=== PATIENT | female | born 1950 | race Caucasian/White ===

== ENCOUNTER → 2016-07-05 | Outpatient (CLI) | payer BC ==
[~2016-07-05] MED LIST: ALBUAER2 INH; CHOL20009 PO; COEN100C7 PO; ENOX80IN SQ; FEXO1TAB49 PO; FLUO0.0566 TOP; FLUT110A INH; LATA0.5S OPB; LEVO88TA PO; MIRA100T PO; OXYB5TAB74 PO; PANT40TA PO; PRVC10 PO; WARF4TAB PO
--- NOTE | 2016-07-05 15:48 | DIAGNOSTIC IMAGING REPORT ---
RIGHT FOOT MIN 3 VIEWS ROUTINE CLINICAL HISTORY: M77.40 Metatarsalgia RIGHT COMPARISON: None. DISCUSSION: No acute fractures are visualized. There are no erosive or destructive changes. There is no suspicious periostitis. IMPRESSION: No fractures, dislocations, or destructive lesions are visualized. Electronically signed by: Stephen Cannon M.D. 07/05/2016 3:46 PM Dictated Date/Time: 07/05/2016 3:45 PM
--- NOTE | 2016-07-05 15:57 | DIAGNOSTIC IMAGING REPORT ---
LEFT FOOT 3 VIEWS CLINICAL HISTORY: Foot pain. FINDINGS: 3 views of the left foot are compared to study dated 09/30/2014. The skeletal structures are osteopenic. No fracture is identified. Mild arthritic changes seen at the first metatarsophalangeal joint. The joint spaces of the foot are otherwise well-maintained. No erosive change is identified. There is minimal degenerative spurring along the dorsal aspect of the tarsal bones. A large plantar calcaneal enthesophyte is observed. Mild dorsal soft tissue swelling is noted. IMPRESSION: 1. Mild dorsal soft tissue swelling with no acute bony abnormality identified in the left foot. 2. Osteopenia, a plantar heel spur, and mild arthritic change as above. There has been no significant change from 09/30/2014. Electronically signed by: Anthony Perez M.D. 07/05/2016 3:55 PM Dictated Date/Time: 07/05/2016 3:54 PM
== END | disposition home or self-care (01) ==
LOC: C.RADBC 14:48
PROVIDERS: ATTEND Internal Medicine Geriatric Medicine
DX: M77.40 Metatarsalgia, unspecified foot (principal); M77.32 Calcaneal spur, left foot; M85.872 Other specified disorders of bone density and structure, left ankle and foot

== ENCOUNTER → 2016-09-03 | Outpatient (CLI) | payer BC ==
[~2016-09-03] MED LIST changes: +ACET-1256 PO; +CYAN100020 PO; +DTR/5 PO; +FIBER; -OXYB5TAB74 PO; +PROB1TAB16; +WARF5TAB7 PO
== END | disposition home or self-care (01) ==
LOC: C.LABSPEC 13:44
PROVIDERS: ATTEND Physician Assistant Medical
DX: S81.802A Unspecified open wound, left lower leg, initial encounter (principal); X58.XXXA Exposure to other specified factors, initial encounter; I10 Essential (primary) hypertension; E03.9 Hypothyroidism, unspecified; R73.9 Hyperglycemia, unspecified; Z51.81 Encounter for therapeutic drug level monitoring; Z79.01 Long term (current) use of anticoagulants

== ENCOUNTER → 2016-11-13 | Outpatient (CLI) | payer BC ==
[~2016-11-13] MED LIST changes: -ACET-1256 PO; -CYAN100020 PO; -DTR/5 PO; -FIBER; +OXYB5TAB74 PO; -PROB1TAB16; -WARF5TAB7 PO
[2016-11-13 14:39] LABS: BASO % 1.2 %; BASO ABS # 0.09 K/uL (0-0.2); COMPLETE YES; EOS % 2.7 %; HEMATOCRIT 46.8 % (37-47); IG% 0.4 %; LYMPH % 33.9 %; LYMPH ABS # 2.62 K/uL (1.2-3.4); MEAN CELL VOLUME 91.4 fL (80-100); MEAN CORPUSCULAR HEMOGLOBIN 29.5 pg (25-34); MEAN CORPUSCULAR HGB CONC 32.3 g/dl (32-36); MEAN PLATELET VOLUME 10.4 fL (7.4-10.4); MONO % 9.5 %; NEUT % 52.3 %; PLATELET COUNT 273 K/uL (130-400); RED BLOOD COUNT 5.12 M/uL (4.2-5.4); WHITE BLOOD COUNT 7.72 K/uL (4.8-10.8)
[2016-11-13 14:45] LABS: BLOOD UREA NITROGEN 12 mg/dl (7-18); BUN/CREATININE RATIO 15.9 (10-20); CALCIUM 9.2 mg/dl (8.5-10.1); CARBON DIOXIDE 28 mmol/L (21-32); CHLORIDE 105 mmol/L (98-107); CREATININE 0.76 mg/dl (0.60-1.20); GLUCOSE 97 mg/dl (70-99); POTASSIUM 3.8 mmol/L (3.5-5.1); SODIUM 141 mmol/L (136-145)
[2016-11-13 14:55] LABS: THYROID STIMULATING HORMONE 0.503 uIu/ml (0.300-4.500)
[2016-11-14 06:57] LABS: ESTIMATED AVERAGE GLUCOSE 126 mg/dl; HA1C FLAG Normal (Normal)
== END | disposition home or self-care (01) ==
LOC: C.LABBC 11:15
PROVIDERS: ATTEND Internal Medicine Geriatric Medicine
DX: E03.9 Hypothyroidism, unspecified (principal); I10 Essential (primary) hypertension; M85.80 Other specified disorders of bone density and structure, unspecified site; R73.9 Hyperglycemia, unspecified; Z51.81 Encounter for therapeutic drug level monitoring; Z79.01 Long term (current) use of anticoagulants

== ENCOUNTER → 2017-03-25 | Outpatient (CLI) | payer BC ==
[~2017-03-25] MED LIST changes: +ACET-1256 PO; -COEN100C7 PO; +CYAN100020 PO; -ENOX80IN SQ; +FIBER; -OXYB5TAB74 PO; -PANT40TA PO; +PROB1TAB16; -PRVC10 PO; +WARF5TAB7 PO
--- NOTE | 2017-03-25 14:32 | MAMMOGRAPHY REPORT ---
BILATERAL DIGITAL SCREENING MAMMOGRAM TOMOSYNTHESIS WITH CAD: 03/25/2017 CLINICAL HISTORY: Routine screening. Patient has no complaints. TECHNIQUE: Breast tomosynthesis in addition to standard 2D mammography was performed. Current study was also evaluated with a Computer Aided Detection (CAD) system. COMPARISON: Comparison is made to exams dated: 03/19/2016 mammogram, 03/14/2015 mammogram, 03/10/2014 mammogram, 03/09/2013 mammogram, 03/04/2012 mammogram, and 12/28/2010 mammogram - [facility]. BREAST COMPOSITION: The tissue of both breasts is almost entirely fatty. FINDINGS: There is a newly visualized ill-defined 9 mm focal asymmetry versus mass in the approximat e 9:00 to 10:00 right breast, for which additional targeted ultrasound and possible additional mammog raphic views are recommended. There are scattered bilateral stable groupings of benign-appearing microcalcifications in both breast s. No other suspicious mass, architectural distortion or cluster of suspicious microcalcifications i s seen. IMPRESSION: ACR BI-RADS CATEGORY 0: INCOMPLETE EVALUATION: NEED ADDITIONAL IMAGING EVALUATION The newly visualized ill-defined 9 mm focal asymmetry versus mass in the right breast needs additiona l evaluation. The patient will be called to schedule an appointment. Approximately 10% of breast cancers are not detected with mammography. A negative mammographic report should not delay biopsy if a clinically suggestive mass is present. Margaret Reddy M.D. ay/:03/25/2017 10:54:26 Commercial Cleaner: Prince Barfield M, [facility] letter sent: Addl Imaging 0 BI-RADS Code: ACR BI-RADS Category 0: Incomplete Evaluation: Need Additional Imaging Evaluation
== END | disposition home or self-care (01) ==
LOC: C.MAMM 09:41
PROVIDERS: ATTEND Obstetrics & Gynecology
DX: Z12.31 Encounter for screening mammogram for malignant neoplasm of breast (principal); R92.8 Other abnormal and inconclusive findings on diagnostic imaging of breast

== ENCOUNTER → 2017-04-01 | Outpatient (CLI) | payer BC ==
--- NOTE | 2017-04-02 13:44 | MAMMOGRAPHY REPORT ---
ULTRASOUND OF RIGHT BREAST: 04/01/2017 CLINICAL HISTORY: 67-year-old woman called back from screening mammography for a newly visualized 9 m m focal asymmetry in the approximate 9:00 right breast. COMPARISON: Comparison is made to exams dated: 03/25/2017 mammogram, 03/19/2016 mammogram, 5 mammogram, 03/10/2014 mammogram, 03/09/2013 mammogram, and 03/04/2012 mammogram - [facility]. FINDINGS: Targeted ultrasound was performed in the lateral right breast to assess for the newly visu alized focal asymmetry seen mammographically. In the 9:00 axis, 4 cm from the nipple, there is a lob ulated hypoechoic solid mass with somewhat indistinct borders, measuring 6.8 x 5.2 x 8.0 mm. This co rrelates with the mammographic mass and is indeterminate given the solid nature. Definitive characte rization with an ultrasound-guided core biopsy is recommended. Additional sonographic evaluation was performed in the right axilla, which demonstrates a few morphol ogically normal lymph nodes with vertical thickness within the range of normal. No suspicious right axillary lymphadenopathy is identified on targeted ultrasound. IMPRESSION: ACR BI-RADS CATEGORY 4: SUSPICIOUS - FOLLOW-UP RECOMMENDED 1. Ultrasound-guided core biopsy is recommended for an indeterminate 8 mm hypoechoic solid mass in t he 9:00 right breast, thought to correlate with the newly visualized mammographic focal asymmetry. 2. No suspicious left axillary lymphadenopathy identified on targeted ultrasound. These results and recommendations were discussed with the patient at the time of the exam. She tenta tively scheduled the biopsy prior to leaving our department. Margaret Reddy M.D. ay/:04/01/2017 15:04:06 Material Controller: Sindi AVILES(R)(M), [facility] letter sent: Abnormal 4/5 BI-RADS Code: ACR BI-RADS Category 4: Suspicious
== END | disposition home or self-care (01) ==
LOC: C.MAMM 14:06
PROVIDERS: ATTEND Obstetrics & Gynecology
DX: N63.0 Unspecified lump in unspecified breast (principal)

== ENCOUNTER → 2017-04-15 | Outpatient (CLI) | payer BC ==
--- NOTE | 2017-04-15 10:55 | Discharge Instructions ---
Discharge Instructions Procedure Procedure Date: Apr 15, 2017. Reason for visit: Right Mass. Discharge Discharge Date: Apr 15, 2017. Discharge Diagnosis: post right breast ultrasound guided core biopsy Medications Restart Stopped Medication(s): Remain on normal Coumadin schedule per coumadin clinic Instructions Activity Recommendations: Additional Limitations (see below) Return to School/Work: no limitations Recommended Home Diet: No Limitations Provider Instructions: ACTIVITY RECOMMENDATIONS: * No lifting, pushing, pulling or exercising the affected side for three days. RETURN TO SCHOOL/WORK: * You may return to work/school after the procedure, but do not perform any strenuous activities for 24 to 48 hours. MEDICATIONS: * Tylenol (two 325 mg) every four to six hours if needed for mild pain (if not allergic to Tylenol). DIET: * Resume previous diet. SPECIAL CARE INSTRUCTIONS: * Keep biopsy site dry for 24 hours. May shower after 24 hours, but do not soak (bathe) incision. * May remove Tegaderm (plastic patch) tomorrow AFTER showering. * Leave the steri-strips on for one week. Allow the steri-strips to fall off by themselves. If not off after one week, you may remove them. You may place a Bandaid crosswise over the strips, if desired. * Apply ice 10 minutes on and 10 minutes off as needed. * Wear a bra at bedtime to sleep more comfortably for 2-3 days. * Your referring physician should have the results after approximately 5 to 7 business days. * Call for unusual bleeding, fever, drainage, etc or if you have any questions call [phone] during normal business hours or after hours call Dr Reddy, . FOLLOW UP VISIT: Follow-up with Referring Physician as scheduled. Allergies Coded Allergies: Solifenacin (Verified Allergy, Intermediate, rash, joint pain, 04/03/16) Adhesives (Verified Allergy, Unknown, REDNESS, 04/03/16) BEE STING (Verified Allergy, Unknown, SWELLING, 04/03/16) Dust (Verified Allergy, Unknown, 04/03/16) POLLEN (Verified Allergy, Unknown, 04/03/16) Kyara Moreno Recommendations: Call your doctor if: * Temperature above 101 degrees * Pain not relieved by pain medicine ordered * There is increased drainage or redness from any incision * You have any unanswered questions or concerns. Your Doctors Instructions noted above were prepared by provider Margaret Reddy. Patient Signature Section: Patient Instructions Signature Page Violet Nelson Patient (or Guardian) Signature/Date: I have read and understand the instructions given to me by my caregivers. Caregiver/RN/Doctor Signature/Date: The above-named patient and/or guardian has received patient instructions on this date. + Original Patient Signature Page (only) stays with chart. Please make copy for patient.
--- NOTE | 2017-04-15 15:10 | MAMMOGRAPHY REPORT ---
ULTRASOUND GUIDED BIOPSY RIGHT BREAST: 04/15/2017 CLINICAL HISTORY: Status post ultrasound-guided core biopsy of a lobulated 8 mm mass in the 9:00 righ t breast. COMPARISON: Comparison is made to exams dated: 04/01/2017 ultrasound, 03/25/2017 mammogram, 03/19/20 16 mammogram, 03/14/2015 mammogram, 03/10/2014 mammogram, and 03/09/2013 mammogram - [facility]. PATIENT CONSENT: The procedure, risks and benefits were discussed with the patient and informed conse nt was obtained both verbally and in writing. Specific risks to this procedure include: bleeding, in fection, puncture of adjacent structure, nontarget biopsy, sampling error, pain, metal allergy and me dication reaction. PROCEDURE DESCRIPTION: A time out was performed and the right breast was agreed as the site of biopsy . The skin was prepped and draped in the usual sterile fashion. The solid lobulated 8 mm mass in the 9:00 right breast was chosen as the target for biopsy. Subcutaneous and intraparenchymal 1% buffered lidocaine, with and without epinephrine, was administered as local anesthesia. A skin incision was ma de. Through the incision, 5 samples were taken with a 14 gauge Achieve biopsy device. A ribbon shape d metallic marker was placed at the biopsy site. Hemostasis was achieved after manual compression. Th e patient tolerated the procedure well and there was no immediate complication. The samples were sen t to the pathology department in an appropriately labeled container. Postprocedure right CC and ML tomosynthesis images were obtained. A new ribbon-shaped biopsy marker clip is seen within the newly visualized mammographic mass in question in the 9:00 middle to posterio r right breast. No significant postbiopsy hematoma identified. IMPRESSION: ULTRASOUND GUIDED BIOPSY Status post ultrasound guided core biopsy of a new suspicious lobulated 8 mm mass in the 9:00 right b reast, with biopsy marker clip placed at the site. The patient will receive notification of the biopsy results from her referring physician Remain on Coumadin as per committing clinic schedule. Margaret Reddy M.D. ay/:04/15/2017 11:04:25 Buttonhole Facer: Kristi AVILES(Prince)(Luis Antonio), [facility]
--- NOTE | 2017-04-15 15:12 | MAMMOGRAPHY REPORT ---
UNILATERAL RIGHT DIGITAL DIAGNOSTIC MAMMOGRAM TOMOSYNTHESIS: 04/15/2017 CLINICAL HISTORY: Status post ultrasound guided core biopsy of a suspicious 8 mm mass in the 9:00 rig ht breast. Please refer to the report from right breast ultrasound guided core biopsy performed at the same time for full detail. IMPRESSION: POST PROCEDURE IMAGING FOR MARKER PLACEMENT Please refer to the report from right breast ultrasound guided core biopsy performed at the same time for full detail. Approximately 10% of breast cancers are not detected with mammography. A negative mammographic report should not delay biopsy if a clinically suggestive mass is present. Margaret Reddy M.D. ay/:04/15/2017 10:54:04 Budget Controller: Kristi JACINTO)(M), [facility] BI-RADS Code: Post Procedure Imaging For Marker Placement
== END | disposition home or self-care (01) ==
LOC: C.MAMM 09:50
PROVIDERS: ATTEND Obstetrics & Gynecology
DX: N63.10 Unspecified lump in the right breast, unspecified quadrant (principal); C50.911 Malignant neoplasm of unspecified site of right female breast

== ENCOUNTER → 2017-05-12 | Outpatient (CLI) | payer BC ==
--- NOTE | 2017-05-12 09:43 | DIAGNOSTIC IMAGING REPORT ---
PET/CT HISTORY: BREAST CANCER TECHNIQUE: PET/CT was performed from the base of the skull through the pelvis following the intravenous administration of mCi of F18-FDG. Non-contrast CT imaging was performed over the same range without breath-hold for attenuation correction of PET images and anatomic correlation, but not for primary interpretation as it is not of standard diagnostic quality. CT DOSE: 662.84 mGycm COMPARISON: Abdomen and pelvis CT 03/29/2016. FINDINGS: HEAD AND NECK: Symmetric FDG uptake within the brain. Bilateral jugulodigastric lymph nodes demonstrating mild FDG uptake with an SUV max of the left 12 x 9 mm lymph node measuring 3.7 and SUV max of 3.3 within 9 mm right lymph node. No supraclavicular lymphadenopathy. CHEST: No mediastinal, axillary, or hilar FDG avid or enlarged lymph nodes. 1 cm mass within the right breast demonstrating a biopsy clip. This demonstrates mild FDG uptake with an SUV max of 1.6. This corresponds the patient's known malignancy. No pleural effusions. No FDG avid or suspicious pulmonary nodules. ABDOMEN/PELVIS: Large ventral hernia is again noted. Slight increase in size in a few mildly enlarged left external iliac and left inguinal lymph nodes. Dominant left external iliac lymph node best in image 182 measures 15 x 10 mm. This previous measured 10 x 6 mm. This demonstrates an SUV max of 2.4. MUSCULOSKELETAL: There is no FDG-avid or destructive bone lesion. IMPRESSION: 1. A 1 cm mass within the right breast with an associated biopsy clip consistent with the patient's known malignancy. This demonstrates minimal FDG uptake with an SUV max of 1.6. 2. A few upper cervical, left external iliac, and left inguinal lymph nodes which are borderline enlarged and demonstrate mild FDG uptake as described above. Given the location and mild FDG uptake this is unlikely to represent metastatic disease. However, six-month chest CT follow-up is recommended to ensure stability/resolution of these findings. Electronically signed by: Jose Means M.D. 05/12/2017 9:42 AM Dictated Date/Time: 05/12/2017 9:14 AM
== END | disposition home or self-care (01) ==
LOC: C.PET 06:55
PROVIDERS: ATTEND Internal Medicine Hematology & Oncology
DX: C50.411 Malignant neoplasm of upper-outer quadrant of right female breast (principal)

== ENCOUNTER → 2017-05-25 | Outpatient (CLI) | payer BC ==
[~2017-05-25] MED LIST changes: -ALBUAER2 INH; +ASTN; -CYAN100020 PO; +CYAN1TAB PO; +ENOX40IN SQ; +ENOX80IN SQ; -FIBER; -FLUT110A INH; +FLVHFA110 INH; +FURO-85 PO; +HYDR-5688 PO; +MAGN250T22 PO; +METH500T3 PO; +MISCCAP80 PO; +POTA99TA PO; -PROB1TAB16; +VNTHFA/IN INH
== END | disposition home or self-care (01) ==
LOC: C.LAB 09:20
PROVIDERS: ATTEND Pathology Blood Banking & Transfusion Medicine
DX: Z79.01 Long term (current) use of anticoagulants (principal)

== ENCOUNTER 2017-05-26 07:52 | Inpatient (IN) | payer BC, OTHER ==
[2017-05-19 14:24] VITALS: BMI 39.0
--- NOTE | 2017-05-19 15:08 | PAT Medication Instructions ---
Service Date May 19, 2017. Current Home Medication List Acetaminophen (Tylenol), 1,000 MG PO QD PRN for Pain or Fever Albuterol Hfa (Ventolin Hfa), 2-4 PUFFS INH Q6H PRN for SOB/Wheezing Azelastine Hcl (Astelin Nasal [place]), 1-2 SPRAYS NA BID PRN for CONGESTION Cholecalciferol (Vitamin D), 1 TAB PO QAM Cyanocobalamin (B-12), 1 TAB PO QAM Fexofenadine Hcl (Liliya Allergy), 1 TAB PO QPM Fluocinonide (Fluocinonide), 1 APPLN TOP DAILY PRN for PRN Fluticasone Propionate (Flovent Hfa), 1 PUFFS INH BID Furosemide (Lasix), 1 TAB PO DAILY PRN for EDEMA Latanoprost (Xalatan 0.005% Oph Bella), 1 DROPS OPB HS Levothyroxine Sodium (Synthroid), 88 MCG PO QAM Magnesium Oxide (Magnesium), 1 TAB PEG QPM Methylcellulose (Laxative) (Citrucel), 1 TAB PO BIDM Mirabegron (Myrbetriq Er), 25 MG PO BID Potassium (Potassium), 1 TAB PO QAM Probiotic Product (Probiotic), 1 CAP PO QAM Warfarin Sod (Jantoven), 5 MG PO 4XWK Warfarin Sodium (Coumadin), 4 MG PO 3XWK Medication Instructions For Your Scheduled Surgery - Check with surgeon and coumadin clinic for instructions: Warfarin Sod (Jantoven), 5 MG PO 4XWK Warfarin Sodium (Coumadin), 4 MG PO 3XWK - Hold the following medications 24 hours prior to surgery: Fluocinonide (Fluocinonide), 1 APPLN TOP DAILY PRN for PRN - Hold the following medications the morning of surgery: Potassium (Potassium), 1 TAB PO QAM Probiotic Product (Probiotic), 1 CAP PO QAM Mirabegron (Myrbetriq Er), 25 MG PO BID Methylcellulose (Laxative) (Citrucel), 1 TAB PO BIDM Furosemide (Lasix), 1 TAB PO DAILY PRN for EDEMA Cyanocobalamin (B-12), 1 TAB PO QAM Cholecalciferol (Vitamin D), 1 TAB PO QAM Azelastine Hcl (Astelin Nasal [place]), 1-2 SPRAYS NA BID PRN for CONGESTION - Take the following medications the morning of surgery with a sip of water: Levothyroxine Sodium (Synthroid), 88 MCG PO QAM Fluticasone Propionate (Flovent Hfa), 1 PUFFS INH BID Acetaminophen (Tylenol), 1,000 MG PO QD PRN for Pain or Fever (okay to take up to 4 hours prior to surgery if needed) Albuterol Hfa (Ventolin Hfa), 2-4 PUFFS INH Q6H PRN for SOB/Wheezing (if needed) - Take the following medications as scheduled the night before surgery: Mirabegron (Myrbetriq Er), 25 MG PO BID Methylcellulose (Laxative) (Citrucel), 1 TAB PO BIDM Magnesium Oxide (Magnesium), 1 TAB PEG QPM Latanoprost (Xalatan 0.005% Oph Bella), 1 DROPS OPB HS Furosemide (Lasix), 1 TAB PO DAILY PRN for EDEMA (if needed) Fluticasone Propionate (Flovent Hfa), 1 PUFFS INH BID Fexofenadine Hcl (Liliya Allergy), 1 TAB PO QPM Azelastine Hcl (Astelin Nasal [place]), 1-2 SPRAYS NA BID PRN for CONGESTION (if needed) Acetaminophen (Tylenol), 1,000 MG PO QD PRN for Pain or Fever (if needed) Albuterol Hfa (Ventolin Hfa), 2-4 PUFFS INH Q6H PRN for SOB/Wheezing (if needed) If you have any questions please call us at [phone] or [phone] or [phone]
[~2017-05-26] VITALS: Ht 147.3 cm; Wt 84.5 kg
[2017-05-26] VITALS (8 sets, daily range): BP systolic 0–158; BP diastolic 64–83; PULSE 75–87; TEMP 36.5–36.9; O2SAT 93–98; Ht 147.3 cm; Wt 84.5 kg
[~2017-05-26 07:52] MED LIST changes: +CEFAZOLIN 2000MG IV PUSH 10 ML IV SCH; -ENOX40IN SQ; -ENOX80IN SQ; -HYDR-5688 PO; +LACTATED RINGER'S 1000ML 1,000 ML IV SCH
[2017-05-26] MEDS ORDERED: ENOX40IN SQ (09:07)
[2017-05-26 09:45] LABS: INR 0.9 (0.9-1.1); PTT PATIENT 24.3 SECONDS (21.0-31.0)
--- NOTE | 2017-05-26 10:07 | DIAGNOSTIC IMAGING REPORT ---
LYMPHOSCINTIGRAPHY CLINICAL HISTORY: Right breast cancer. PROCEDURE: Using standard sterile technique, 4 intradermal and one deep injection of 0.5 mCi of Lymphoseek was placed in the right periareolar breast. The patient tolerated the procedure well. There were no immediate complications. The patient was subsequently transported to the surgical suite. No imaging was obtained at the referring physician's request. IMPRESSION: Injection of 0.5 mCi of Lymphoseek in the right breast. Electronically signed by: Jose Means M.D. 05/26/2017 10:05 AM Dictated Date/Time: 05/26/2017 10:05 AM
--- NOTE | 2017-05-26 11:14 | History & Physical Bridge Note ---
H&P Re-Evaluation Bridge Note: I have examined the patient, reviewed the History & Physical and in the interval since the performance of the History & Physical I have noted the following changes of clinical significance: No changes noted
[2017-05-26] MEDS ORDERED: FENTANYL CITRATE INJ 50 MCG/1 ML 2 ML VIAL ONE ×2 (12:24→13:19)
[2017-05-26] MEDS ORDERED: ALBUTEROL HFA INHALER 8.5 GM INH ONE (12:24)
[2017-05-26] MEDS ORDERED: LIDOCAINE 2% 20 MG/ML 5ML SYR IV ONE (12:24)
[2017-05-26] MEDS ORDERED: MIDAZOLAM HCL 1 MG/ML 2ML VIAL ONE (12:24)
[2017-05-26] MEDS ORDERED: ISOSULFAN BLUE 10 MG/ML VIAL 5 ML ONE (12:25)
[2017-05-26] MEDS ORDERED: BUPIVACAINE 0.5 % 5 MG/1 ML MPF 30ML VIAL ONE (12:25)
[2017-05-26] MEDS ORDERED: FLUMAZENIL 0.1 MG/1 ML 10 ML VIAL IV PRN (12:30)
[2017-05-26] MEDS ORDERED: EpHEDrine SULFATE INJ 50 MG/ML AMP IV PRN (12:30)
[2017-05-26] MEDS ORDERED: ONDANSETRON INJ 2 MG/ML 2 ML VIAL IV PRN ×2 (12:30→14:00)
[2017-05-26] MEDS ORDERED: NALOXONE HCL 0.4 MG/1 ML VIAL/CARP IV PRN (12:30)
[2017-05-26] MEDS ORDERED: HYDROmorphone INJ 2 MG/ML SYR/VIAL IV PRN (12:30)
[2017-05-26] MEDS ORDERED: MEPERIDINE HCL 25 MG/ML CARP IV PRN (12:30)
[2017-05-26] MEDS ORDERED: ATROPINE SULFATE 0.1 MG/ML 5ML SYR IV PRN (12:30)
[2017-05-26] MEDS ORDERED: LABETALOL HCL IV 5 MG/ML 20ML IV PRN (12:30)
[2017-05-26] MEDS ORDERED: PHENYLEPHRINE 100MCG/ML 5ML SYR IV PRN (12:30)
[2017-05-26] MEDS ORDERED: METHYLENE BLUE 0.5% 10 ML VIAL ONE (12:50)
[2017-05-26] MEDS ORDERED: DEXAMETHASONE SOD INJ 4 MG/ML VIAL ONE (13:19)
[2017-05-26] MEDS ORDERED: ONDANSETRON INJ 2 MG/ML 2 ML VIAL ONE (13:19)
--- NOTE | 2017-05-26 13:54 | [facility] Operative Report ---
Operative Report Operative Date May 26, 2017. Pre-Operative Diagnosis Rt breast cancer Post-Operative Diagnosis same Procedure(s) Performed needle loc Rt lumpectomy with sentinel lymph node bx Surgeon Naif Janitor And Cleaner Surgeon(s) Charu Valiente Estimated Blood Loss 10 cc Findings clip w/n mass Drains #[address] CORBY Anesthesia gen Complication(s) None Disposition Recovery Room / PACU I attest to the content of the Intraoperative Record and any orders documented therein. Any exceptions are noted below.
[2017-05-26] MEDS ORDERED: HYDROCODONE/ACETAMOPHEN 5/325MG TAB PO PRN (14:00)
[2017-05-26] MEDS ORDERED: PROMETHAZINE HCL INJ 25 MG in SODIUM CHLORIDE 0.9% 50ML 50 ML IV PRN (14:00)
[2017-05-26] MEDS ORDERED: MoRPHine SULFATE 4 MG/ML 1 ML CARP\\VIAL IV PRN (14:00)
[2017-05-26] MEDS ORDERED: MoRPHine SULFATE 2 MG/ML CARP IV PRN (14:00)
[2017-05-26] MEDS: FENTANYL CITRATE INJ 50 MCG/1 ML 2 ML VIAL IV PRN ×2 (14:31→14:38)
--- NOTE | 2017-05-26 14:43 | MAMMOGRAPHY REPORT ---
UNILATERAL RIGHT DIGITAL DIAGNOSTIC MAMMOGRAM: 05/26/2017 CLINICAL HISTORY: Mammogram imaging after ultrasound-guided needle localization for biopsy proven car cinoma in the 9:00 right breast. Please refer to the report from right breast ultrasound-guided needle localization performed at the s ajay time for full detail. IMPRESSION: Please refer to the report from right breast ultrasound-guided needle localization performed at the s ajay time for full detail. Approximately 10% of breast cancers are not detected with mammography. A negative mammographic report should not delay biopsy if a clinically suggestive mass is present. Margaret Reddy M.D. ay/:05/26/2017 10:15:17 Medical Review Coordinator: Renetta Mckeon, [facility] BI-RADS Code: n/a
--- NOTE | 2017-05-26 14:54 | Anesthesiology Progress Note ---
Anesthesia Post Op Note Date & Time May 26, 2017 at 14:54 Vital Signs Pain Intensity: 3 Vital Signs Past 12 Hours Date Time Temp Pulse Resp B/P (MAP) Pulse Ox O2 Delivery O2 Flow Rate FiO2 05/26/17 14:30 78 17 148/113 100 Oxymask 10 05/26/17 14:20 77 16 152/80 100 Oxymask 10 05/26/17 14:10 36.6 79 10 160/76 100 Oxymask 10 05/26/17 09:56 36.7 77 20 0/ 98 Room Air Notes Mental Status: alert / awake / arousable, participated in evaluation Pt Amnestic to Procedure: Yes Nausea / Vomiting: adequately controlled Pain: adequately controlled Airway Patency, RR, SpO2: stable & adequate BP & HR: stable & adequate Hydration State: stable & adequate Anesthetic Complications: no major complications apparent
[2017-05-26] MEDS ORDERED: IV FLUIDS COMPLETED PRN (15:45)
[2017-05-26] MEDS ORDERED: LACTATED RINGER'S 1000ML 1,000 ML IV SCH (17:00)
--- NOTE | 2017-05-26 17:12 | OPERATIVE REPORT ---
DATE OF OPERATION: 05/26/2017 NAME OF OPERATION: Needle localization, right lumpectomy with sentinel lymph node biopsy. PREOPERATIVE DIAGNOSIS: Right breast cancer. POSTOPERATIVE DIAGNOSIS: Same. STAFF SURGEON: Dr. Disla. TRADE MARK EXAMINER: Wai Valiente PA-C. ANESTHESIA: General. DESCRIPTION OF PROCEDURE: The patient was brought in the operating room and placed on the operating table in supine position. Her right chest and breasts were prepped and draped in usual fashion as well as her axilla. A needle had been placed laterally in the right breast. At this point, an incision was made in the right axilla using 0.5% plain Marcaine to anesthetize skin and subcutaneous tissue, carrying dissection down using a Neoprobe to identify the sentinel lymph node which was sent for frozen section. The frozen section was negative. During the frozen section, we did perform lump lumpectomy. I made an incision laterally and anteriorly around the needle carrying dissection down, taking significant tissue around the needle and then marking the tissue with the needle lateral, short silk suture medial/deep and a double silk suture superior. I did take additional tissue at the end of the needle down to the muscle which was marked with a long silk suture lateral, short silk suture medial chromic suture superior and methylene blue on the new medial deep margin down on the muscle. At this point, I also took additional superior tissue after placing the main specimen to the Faxitron. The additional superior tissue was marked with a short silk suture medial/deep and methylene blue on the new margin. The imaged was sent over to the breast center and the clip and mass were in the center of the specimen. Dr. Reddy did call me in the OR. At this point, I did place a 15 round Darren-Arroyo drain into the breast wound, secured to the skin using 3-0 nylon suture. The wounds were then irrigated, deep tissue reapproximated using 2-0 plain catgut suture then the axilla reapproximated by placing 4-0 nylons in the skin and then the breast skin closed using subcuticular 4-0 Monocryl with Steri-Strips. My carpenter's assistant helped with prepping and draping, exposing the axilla and breast tissue and then closure of both wounds. I attest to the content of the Intraoperative Record and any orders documented therein. Any exception s are noted below.
[2017-05-26] MEDS: HEPARIN 25,000 UNIT/500ML D5W 500 ML IV SCH ×2 (17:23→23:02)
--- NOTE | 2017-05-26 17:31 | Surgery Progress Note ---
Surgery Progress Note Date of Service May 26, 2017. Subjective L dictating on patient status post right lumpectomy with lymph node biopsy She is doing quite well postoperatively Objective Vital Signs: Date Time Temp Pulse Resp B/P (MAP) Pulse Ox O2 Delivery O2 Flow Rate FiO2 05/26/17 16:46 36.5 77 18 123/80 (94) 96 Nasal Cannula 2.0 05/26/17 16:17 36.5 75 16 132/81 (98) 97 Nasal Cannula 2.0 05/26/17 15:49 36.7 80 14 132/81 (98) 96 Nasal Cannula 2.0 05/26/17 15:15 77 17 134/71 97 Nasal Cannula 2 05/26/17 15:00 66 17 137/84 97 Nasal Cannula 2 05/26/17 14:50 36.6 70 12 122/68 97 Nasal Cannula 2 05/26/17 14:40 63 13 138/71 98 Nasal Cannula 2 05/26/17 14:30 78 17 148/113 100 Oxymask 10 05/26/17 14:20 77 16 152/80 100 Oxymask 10 05/26/17 14:10 36.6 79 10 160/76 100 Oxymask 10 05/26/17 09:56 36.7 77 20 0/ 98 Room Air General Appearance: no apparent distress Respiratory/Chest: no respiratory distress Incision(s): intact Laboratory Results: Results Past 24 Hours Test 05/26/17 09:13 Range/Units Prothrombin Time 9.9 9.0-12.0 SECONDS Prothromb Time International Ratio 0.9 0.9-1.1 Activated Partial Thromboplast Time 24.3 21.0-31.0 SECONDS Partial Thromboplastin Ratio 0.9 Microbiology Results 05/26/17 MRSA DNA Surveillance Screen - Final, Complete Specimen Negative for MRSA by DNA Probe Assessment & Plan Patient is stable postop from right lumpectomy. We will begin low dose IV heparin this evening and also give her a dose of warfarin
[2017-05-26] MEDS ORDERED: WARFARIN SOD 7.5 MG TAB PO ONE (18:00)
[2017-05-26] MEDS: HYDROCODONE/ACETAMOPHEN 5/325MG TAB PO PRN (19:37)
[2017-05-26] MEDS ORDERED: CEFAZOLIN IV 1,000 MG in DEXTROSE 5% 50ML 50 ML IV SCH (20:00)
[2017-05-26] MEDS: CEFAZOLIN IV 1,000 MG in SYRINGE 0 ML IV SCH (20:26)
[2017-05-27] MEDS: HYDROCODONE/ACETAMOPHEN 5/325MG TAB PO PRN ×3 (03:24→23:30)
[2017-05-27] MEDS: CEFAZOLIN IV 1,000 MG in SYRINGE 0 ML IV SCH ×2 (03:24→11:58)
[2017-05-27 03:59] VITALS: BP 96/62; PULSE 65; TEMP 36.5; O2SAT 95
[2017-05-27 06:04] LABS: HEMATOCRIT 40.2 % (37-47); HEMOGLOBIN 13.6 g/dL (12.0-16.0); MEAN CELL VOLUME 91.4 fL (80-100); MEAN CORPUSCULAR HEMOGLOBIN 30.9 pg (25-34); MEAN CORPUSCULAR HGB CONC 33.8 g/dl (32-36); MEAN PLATELET VOLUME 10.6 fL (7.4-10.4); PLATELET COUNT 240 K/uL (130-400); RED CELL DISTRIBUTION WIDTH CV 12.8 % (11.5-14.5); RED CELL DISTRIBUTION WIDTH SD 42.9 fL (36.4-46.3); WHITE BLOOD COUNT 10.98 K/uL (4.8-10.8)
--- NOTE | 2017-05-27 06:11 | Surgery Progress Note ---
Surgery Progress Note Date of Service May 27, 2017. Subjective awake , alert, minimal pain drain- minimal Objective Vital Signs: Date Time Temp Pulse Resp B/P (MAP) Pulse Ox O2 Delivery O2 Flow Rate FiO2 05/27/17 03:59 36.5 65 16 96/62 (73) 95 Room Air 05/27/17 00:00 Room Air 05/26/17 23:20 36.8 76 16 99/64 (76) 94 Room Air 05/26/17 18:44 36.9 87 18 158/83 (108) 93 Room Air 05/26/17 17:51 36.6 75 18 133/78 (96) 94 Room Air 05/26/17 17:15 98 Room Air 05/26/17 16:46 36.5 77 18 123/80 (94) 96 Nasal Cannula 2.0 05/26/17 16:17 36.5 75 16 132/81 (98) 97 Nasal Cannula 2.0 05/26/17 15:49 36.7 80 14 132/81 (98) 96 Nasal Cannula 2.0 05/26/17 15:45 Nasal Cannula 2.0 05/26/17 15:45 Nasal Cannula 2.0 05/26/17 15:15 77 17 134/71 97 Nasal Cannula 2 05/26/17 15:00 66 17 137/84 97 Nasal Cannula 2 05/26/17 14:50 36.6 70 12 122/68 97 Nasal Cannula 2 05/26/17 14:40 63 13 138/71 98 Nasal Cannula 2 05/26/17 14:30 78 17 148/113 100 Oxymask 10 05/26/17 14:20 77 16 152/80 100 Oxymask 10 05/26/17 14:10 36.6 79 10 160/76 100 Oxymask 10 05/26/17 09:56 36.7 77 20 0/ 98 Room Air General Appearance: no apparent distress Respiratory/Chest: no respiratory distress Incision(s): dry, intact, drainage (expected) Laboratory Results: Results Past 24 Hours Test 05/26/17 09:13 05/27/17 05:09 Range/Units Prothrombin Time 9.9 9.0-12.0 SECONDS Prothromb Time International Ratio 0.9 0.9-1.1 Activated Partial Thromboplast Time 24.3 21.0-31.0 SECONDS Partial Thromboplastin Ratio 0.9 White Blood Count 10.98 4.8-10.8 K/uL Red Blood Count 4.40 4.2-5.4 M/uL Hemoglobin 13.6 12.0-16.0 g/dL Hematocrit 40.2 37-47 % Mean Corpuscular Volume 91.4 80-100 fL Mean Corpuscular Hemoglobin 30.9 25-34 pg Mean Corpuscular Hemoglobin Concent 33.8 32-36 g/dl RDW Standard Deviation 42.9 36.4-46.3 fL RDW Coefficient of Variation 12.8 11.5-14.5 % Platelet Count 240 130-400 K/uL Mean Platelet Volume 10.6 7.4-10.4 fL Microbiology Results 05/26/17 MRSA DNA Surveillance Screen - Final, Complete Specimen Negative for MRSA by DNA Probe Assessment & Plan Patient is stable postop from right lumpectomy. We will begin low dose IV heparin this evening and also give her a dose of warfarin 05/27/17- s/p Rt lumpectomy w/ SLN bx- doing well- h/o DVT on coumadin. cont IV Heparin, low dose- no bolus, give dose of coumadin today and likely d/c home tomorrow- leave drain Patient is stable postop from right lumpectomy. We will begin low dose IV heparin this evening and also give her a dose of warfarin
[2017-05-27 06:12] LABS: PTT PATIENT 25.4 SECONDS (21.0-31.0)
[2017-05-27 06:39] LABS: CALCIUM 8.8 mg/dl (8.5-10.1); CREATININE 0.65 mg/dl (0.60-1.20); POTASSIUM 3.9 mmol/L (3.5-5.1)
[2017-05-27] MEDS: HEPARIN 25,000 UNIT/500ML D5W 500 ML IV SCH ×2 (07:10→15:18)
[2017-05-27 07:35] VITALS: BP 126/77; PULSE 71; TEMP 36.7; O2SAT 94
[2017-05-27] MEDS ORDERED: HYDR-5688 PO (08:15)
--- NOTE | 2017-05-27 08:17 | Discharge Instructions ---
Discharge Instructions Date of Service May 27, 2017. Admission Reason for Admission: Right Breast Cancer W/Hosp Loc & Nm Lymph Inj #19 Discharge Discharge Diagnosis / Problem: Rt breast cancer Discharge Goals Goal(s): Decrease discomfort, Improve function, Improve disease control Activity Recommendations Activity Limitations: as noted below Lifting Limitations: no more than 10 pounds Exercise/Sports Limitations: until after follow-up appointment May Resume Sexual Activity: when tolerated Shower/Bathe: tomorrow Driving or Machine Use: one week . Instructions / Follow-Up Instructions / Follow-Up SPECIAL CARE INSTRUCTIONS: * Cover incisions and change daily for comfort/drainage. * Empty drain 2-3 times per day and record. do not take lovenox at home * May use ibuprofen for pain as tolerated. * Expect some swelling and bruising. Call your doctor if: * Temperature above 101 degrees * Pain not relieved by pain medicine ordered * There is increased drainage or redness from any incision * You have any unanswered questions or concerns [phone]. FOLLOW UP VISIT: If not already scheduled, please call the office for a follow-up visit for 05/30- drain removal OFFICE PHONE NUMBER: Dr. Disla Office Current Hospital Diet Patient's current hospital diet: Regular Diet Discharge Diet Recommended Diet: Regular Diet Procedures Procedures Performed: needle loc Rt lumpectomy with sentinel lymph node bx Pending Studies Studies pending at discharge: no Medical Emergencies . Who to Call and When: Medical Emergencies: If at any time you feel your situation is an emergency, please call 911 immediately. . Non-Emergent Contact Non-Emergency issues call your: Primary Care Provider, Surgeon . "Provider Documentation" section prepared by Jose Disla. . VTE Core Measure Inpt VTE Proph given/why not?: Unfractionated heparin SQ, Warfarin (Coumadin), SCD's
--- NOTE | 2017-05-27 09:50 | Anesthesiology Progress Note ---
Anesthesia Post Op Note Date & Time May 27, 2017 at 09:49 Vital Signs Pain Intensity: 2 Vital Signs Past 12 Hours Date Time Temp Pulse Resp B/P (MAP) Pulse Ox O2 Delivery O2 Flow Rate FiO2 05/27/17 07:35 36.7 71 16 126/77 (93) 94 Room Air 05/27/17 03:59 36.5 65 16 96/62 (73) 95 Room Air 05/27/17 00:00 Room Air 05/26/17 23:20 36.8 76 16 99/64 (76) 94 Room Air Notes Mental Status: alert / awake / arousable Pt Amnestic to Procedure: Yes Nausea / Vomiting: adequately controlled Pain: adequately controlled Airway Patency, RR, SpO2: stable & adequate BP & HR: stable & adequate Hydration State: stable & adequate
--- NOTE | 2017-05-27 14:38 | MAMMOGRAPHY REPORT ---
NEEDLE LOCALIZATION RIGHT BREAST: 05/26/2017 CLINICAL HISTORY: Biopsy-proven carcinoma in the 9:00 right breast. Patient presents for preoperativ e needle and wire localization. COMPARISON: Comparison is made to exams dated: 04/01/2017 ultrasound, 03/25/2017 mammogram, 03/19/20 16 mammogram, 03/14/2015 mammogram, 03/10/2014 mammogram, and 03/09/2013 mammogram - [facility]. PATIENT CONSENT: The risks of the procedure were explained to the patient and informed consent was ob tained. PROCEDURE DESCRIPTION: Prior mammogram and ultrasound imaging including ultrasound-guided core biopsy performed 04/15/2017 and post procedure mammograms from the same day were reviewed. The hypoechoic solid lobulated mass in the 9:00 right breast with associated biopsy marker clip is the intended targ et for preoperative localization. With the patient in the supine/left lateral decubitus position, th e skin of the right lateral breast was cleansed with Betadine. 1% buffered Lidocaine without epinephr ine was administered as local anesthesia. A 7.5cm Fonseca II needle and wire combination was inserted into the breast. Optimal positioning was confirmed and the wire was locked in place, leaving both th e needle and wire within the breast, as per surgeon's preference. Post localization right CC and ML 2-D mammograms were obtained. The localizing needle and wire trave rse the biopsy proven carcinoma in the 9:00 middle to posterior right breast. The wire hilario is noted along the lateral margin of the mass. The entire procedure including approach and needle length were discussed with the operating surgeon yolanda navarro to surgery. The patient tolerated the procedure well and there was no immediate complication. She was transported to the operating room in satisfactory condition. The specimen radiograph demonstrates the localizing needle and wire, a dense mass and ribbon-shaped b iopsy marker clip located at C 10, compatible with successful preoperative localization and subsequen t surgical excision. IMPRESSION: NEEDLE LOCALIZATION Status post successful preoperative needle and wire localization for biopsy proven carcinoma in the 9 :00 right breast. The imaged specimen includes the intended abnormalities. The patient will receive notification of the final pathology results from her operating surgeon. Margaret Reddy M.D. ay/:05/26/2017 14:55:22 Ciso: Renetta Mckeon, [facility]
--- NOTE | 2017-05-27 14:38 | MAMMOGRAPHY REPORT ---
SPECIMEN: 05/26/2017 CLINICAL HISTORY: Preoperative needle and wire localization for biopsy proven carcinoma in the right breast. Please refer to the report from ultrasound-guided preoperative needle localization in the right breas t performed at the same time for full detail. IMPRESSION: SPECIMEN Please refer to the report from ultrasound-guided preoperative needle localization in the right breas t performed at the same time for full detail. Margaret Reddy M.D. ay/:05/26/2017 14:55:55 Field Appraiser: Renetta Mckeon, [facility]
[2017-05-27 15:06] VITALS: BP 120/73; PULSE 79; TEMP 36.6; O2SAT 96
[2017-05-27] MEDS: WARFARIN SOD 7.5 MG TAB PO SCH (17:43)
[2017-05-27] MEDS ORDERED: ENOX80IN SQ (18:21)
--- NOTE | 2017-05-27 18:26 | Progress Note ---
Subjective Date of Service: May 27, 2017. Subjective Pt evaluation today including: conversation w/ patient, conversation w/ family , physical exam, chart review, lab review, review of inpatient medication list feeling well doing well post op no problems notes blood clots after a trip to [place] ago, then related to PICC she thinks that was in 2008. no clots since, does well on coumadin was on lovenox 40mg leading up to procedure when INR being reversed, now on heparin with coumadin to be restarted believes she has f/u at coumadin clinic on friday Problem List Medical Problems: (1) Small bowel obstruction Status: Acute Review of Systems all other ROS otherwise negative except for as above Objective Vital Signs Date Time Temp Pulse Resp B/P (MAP) Pulse Ox O2 Delivery O2 Flow Rate FiO2 05/27/17 15:06 36.6 79 16 120/73 (89) 96 Nasal Cannula 05/27/17 07:35 Room Air 05/27/17 07:35 36.7 71 16 126/77 (93) 94 Room Air 05/27/17 03:59 36.5 65 16 96/62 (73) 95 Room Air 05/27/17 00:00 Room Air 05/26/17 23:20 36.8 76 16 99/64 (76) 94 Room Air 05/26/17 18:44 36.9 87 18 158/83 (108) 93 Room Air Physical Exam General Appearance: no apparent distress Eyes: EOMI ENT: hearing grossly normal Neck: trachea midline Respiratory/Chest: no respiratory distress, no accessory muscle use Neurologic/Psychiatric: risk and compliance analytics director II-XII nml as tested, alert, normal mood/affect Skin: normal color, warm/dry Laboratory Results Last 24 Hours Test 05/27/17 05:09 White Blood Count 10.98 K/uL Red Blood Count 4.40 M/uL Hemoglobin 13.6 g/dL Hematocrit 40.2 % Mean Corpuscular Volume 91.4 fL Mean Corpuscular Hemoglobin 30.9 pg Mean Corpuscular Hemoglobin Concent 33.8 g/dl RDW Standard Deviation 42.9 fL RDW Coefficient of Variation 12.8 % Platelet Count 240 K/uL Mean Platelet Volume 10.6 fL Activated Partial Thromboplast Time 25.4 SECONDS Partial Thromboplastin Ratio 1.0 Sodium Level 137 mmol/L Potassium Level 3.9 mmol/L Chloride Level 106 mmol/L Carbon Dioxide Level 24 mmol/L Anion Gap 7.0 mmol/L Blood Urea Nitrogen 15 mg/dl Creatinine 0.65 mg/dl Est Creatinine Clear Calc Drug Dose 77.3 ml/min Estimated GFR () 106.5 Estimated GFR (Non- 91.9 BUN/Creatinine Ratio 23.4 Random Glucose 126 mg/dl Calcium Level 8.8 mg/dl Hepatitis C Antibody Screen NEG Assessment and Plan recurrent DVT and V Leiden mutation -doing well -no evidence of active DVT/PE -on heparin gtt -will transition to lovenox 1mg/kg SQ Q12 tomorrow - (stop heparin around 4am, she notes she'd prefer to use lovenox around 8a/8p) safe to be discharged home, she's done bridging before - and would resume coumadin, follow INR closely -she believes she is scheduled to see coumadin clinic friday to have INR checked then, would continue coumadin until INR therapeutic - will ask Tino to ensure scheduled stable, will sign off, please do not hesitate to call if i can be of assistance
[2017-05-27 23:35] VITALS: BP 131/82; PULSE 73; TEMP 36.4; O2SAT 98
[2017-05-28] MEDS: HEPARIN 25,000 UNIT/500ML D5W 500 ML IV SCH (00:17)
[2017-05-28] MEDS ORDERED: *HEPARIN DRIP*STOP ORDER ONE (04:00)
[2017-05-28 06:14] LABS: INR 1.2 (0.9-1.1); PTT PATIENT 24.2 SECONDS (21.0-31.0)
--- NOTE | 2017-05-28 06:27 | Surgery Progress Note ---
Surgery Progress Note Date of Service May 28, 2017. Subjective doing well Objective Vital Signs: Date Time Temp Pulse Resp B/P (MAP) Pulse Ox O2 Delivery O2 Flow Rate FiO2 05/27/17 23:37 Room Air 05/27/17 23:35 36.4 73 16 131/82 (98) 98 Room Air 05/27/17 16:15 Room Air 05/27/17 15:06 36.6 79 16 120/73 (89) 96 Nasal Cannula 05/27/17 07:35 Room Air 05/27/17 07:35 36.7 71 16 126/77 (93) 94 Room Air Incision(s): dry, intact Laboratory Results: Results Past 24 Hours Test 05/28/17 05:50 Range/Units Prothrombin Time 12.7 9.0-12.0 SECONDS Prothromb Time International Ratio 1.2 0.9-1.1 Activated Partial Thromboplast Time 24.2 21.0-31.0 SECONDS Partial Thromboplastin Ratio 0.9 Assessment & Plan 05/28/17- will d/c home on coumadin - 5 mg today- No Lovenox- high risk of hematoma with Warfarin and Lovenox see in office Fri- drain removal Patient is stable postop from right lumpectomy. We will begin low dose IV heparin this evening and also give her a dose of warfarin 05/27/17- s/p Rt lumpectomy w/ SLN bx- doing well- h/o DVT on coumadin. cont IV Heparin, low dose- no bolus, give dose of coumadin today and likely d/c home tomorrow- leave drain Patient is stable postop from right lumpectomy. We will begin low dose IV heparin this evening and also give her a dose of warfarin 05/27/17- s/p Rt lumpectomy w/ SLN bx- doing well- h/o DVT on coumadin. cont IV Heparin, low dose- no bolus, give dose of coumadin today and likely d/c home tomorrow- leave drain
[2017-05-28 07:21] VITALS: BP 116/74; PULSE 63; TEMP 36.6; O2SAT 96
--- NOTE | 2017-05-28 07:52 | DISCHARGE SUMMARY ---
PRINCIPAL DIAGNOSIS: Right breast cancer. PROCEDURES: The patient underwent right partial mastectomy with sentinel lymph node biopsy. OTHER DIAGNOSIS: The patient has a history of deep venous thrombosis on chronic anticoagulation. HISTORY OF PRESENT ILLNESS: The patient is a 67-year-old female with biopsy proven right breast cancer brought into the hospital for elective operation. She has been on Coumadin which was stopped and then kept on Lovenox until preop. HOSPITAL COURSE: The patient was brought in the hospital and taken to the operating room for elective surgery. She underwent needle localization and right breast partial mastectomy with sentinel lymph node biopsy. [place] lymph node was negative. The operation went well. The patient was transferred to regular nursing floor and then that day given Coumadin and also placed on low dose IV heparin. She has been kept on low dose IV heparin and has had Coumadin over the last 2 days and also to be given a dose today at home. I do feel she is stable for discharge home on Coumadin and we will hold the Lovenox as she is at high risk for developing hematoma. We will see her in the office in 2 days for drain removal.
[2017-05-28] MEDS: HYDROCODONE/ACETAMOPHEN 5/325MG TAB PO PRN (07:58)
[2017-05-28] MEDS ORDERED: ENOXAPARIN 80 MG/0.8 ML SYR SQ SCH (08:00)
[2017-05-28 11:01] VITALS: BP 116/74; PULSE 63; TEMP 36.6; O2SAT 96
[2017-05-28] MEDS: WARFARIN SOD 7.5 MG TAB PO SCH (12:20)
== END 2017-05-28 12:32 | disposition home or self-care (01) | DRG 580 ==
LOC: C.ACU 07:52 → C.MSW 11:30 → ENRESERV 15:17 → OBSVTOIN 05-27 06:12
PROVIDERS: ADMIT Surgery; ATTEND Surgery
PROC: 0HBT0ZX Excision of Right Breast, Open Approach, Diagnostic (ICD-10-PCS; principal; 2017-05-26 11:30)
PROC: 07B50ZX Excision of Right Axillary Lymphatic, Open Approach, Diagnostic (ICD-10-PCS; principal; 2017-05-26 11:30)
DX: C50.911 Malignant neoplasm of unspecified site of right female breast (principal); D68.51 Activated protein C resistance; D68.52 Prothrombin gene mutation; E87.5 Hyperkalemia; E03.9 Hypothyroidism, unspecified; J45.909 Unspecified asthma, uncomplicated; Z79.899 Other long term (current) drug therapy; Z79.01 Long term (current) use of anticoagulants; Z86.718 Personal history of other venous thrombosis and embolism; Z87.891 Personal history of nicotine dependence; Z80.0 Family history of malignant neoplasm of digestive organs; Z82.49 Family history of ischemic heart disease and other diseases of the circulatory system; Z82.5 Family history of asthma and other chronic lower respiratory diseases; Z83.3 Family history of diabetes mellitus; Z83.6 Family history of other diseases of the respiratory system; Z84.89 Family history of other specified conditions

== ENCOUNTER → 2017-06-30 | Day surgery (SDC) | payer BC ==
[2017-06-27 08:16] VITALS: BMI 39.0
[~2017-06-30] VITALS: Ht 147.3 cm; Wt 84.5 kg
[~2017-06-30] MED LIST changes: +ALBUAER INH; +ATROPINE SULFATE 0.1 MG/ML 5ML SYR IV PRN; -CEFAZOLIN 2000MG IV PUSH 10 ML IV SCH; +CEFAZOLIN IV 2,000 MG in DEXTROSE 5% 50ML 50 ML IV SCH; +CEFAZOLIN SOD 1 GM VIAL ONE; +CEFAZOLIN SOD 2000MG/15 ML IV PUSH IV ONE; +CYAN100020 PO; -CYAN1TAB PO; +EpHEDrine SULFATE INJ 50 MG/ML AMP IV PRN; +FENTANYL CITRATE INJ 50 MCG/1 ML 2 ML VIAL ONE; -FLUO0.0566 TOP; +HEPARIN SOD (PORCINE) 1000 UNIT/ML 10 ML VIAL ONE; +HYDROCODONE/ACETAMIN 5/325MG TAB PO PRN; +IPRA0.03 NAE; +LIDOCAINE HCL 1% 20 ML VIAL ONE; +LIDOCAINE HCL 2% 2 ML VIAL (20MG/ML) ONE; +MIDAZOLAM HCL 1 MG/ML 2ML VIAL ONE; +PROPOFOL IV EMULSION 10 MG/ML 20 ML VIAL IV ONE; +THROMBIN FOR SOLN 20000 UNIT KIT ONE; -VNTHFA/IN INH
[2017-06-30 07:29] VITALS: BP 139/68; PULSE 71; TEMP 36.7; O2SAT 96; Ht 147.3 cm; Wt 84.5 kg
[2017-06-30 08:18] LABS: PTT PATIENT 24.5 SECONDS (21.0-31.0)
--- NOTE | 2017-06-30 08:38 | History and Physical ---
History & Physical Date Jun 30, 2017. Chief Complaint breast cancer, for port History of Present Illness The patient is a 67 year old female with h/o breast surgery for breast cancer for access port Past Medical/Surgical History Medical Problems: (1) Breast cancer (2) Diverticulitis (3) Hyperlipidemia (4) Hyperthyroidism (5) snf (current) use of anticoagulants (6) Perforated ulcer (7) SBO (small bowel obstruction) Surgical Problems: (1) H/O hernia repair (2) History of colon resection Additional History Hepatic Disease: No Kidney Disease: No Bleeding Tendencies: No Infectious Diseases: No Allergies Coded Allergies: BEE STING (Verified Allergy, Intermediate, SWELLING, 06/27/17) Solifenacin (Verified Allergy, Intermediate, rash, joint pain, 06/27/17) Adhesives (Verified Allergy, Mild, REDNESS, 06/27/17) Dust (Verified Allergy, Mild, CONGESTED AND COUGH, 06/27/17) POLLEN (Verified Allergy, Mild, CONGESTION AND COUGH, 06/27/17) Oyster (Verified Allergy, Unknown, Itchy, 06/27/17) Home Medications Scheduled Cholecalciferol (Vitamin D), 1 TAB PO QAM Cyanocobalamin (Vitamin B12), 1 TAB PO DAILY Fexofenadine Hcl (Liliya Allergy), 1 TAB PO QPM Fluticasone Propionate (Flovent Hfa), 1 PUFFS INH BID Latanoprost (Xalatan 0.005% Oph Bella), 1 DROPS OPB HS Levothyroxine Sodium (Synthroid), 88 MCG PO QAM Magnesium Oxide (Magnesium), 1 TAB PO QPM Methylcellulose (Laxative) (Citrucel), 1 TAB PO BIDM Mirabegron (Myrbetriq Er), 25 MG PO BID Potassium (Potassium), 1 TAB PO QAM Probiotic Product (Probiotic), 1 CAP PO QAM Warfarin Sod (Jantoven), 5 MG PO 4XWK Warfarin Sodium (Coumadin), 4 MG PO 3XWK Scheduled PRN Acetaminophen (Tylenol), 1,000 MG PO QD PRN for Pain or Fever Albuterol Sulfate (Proventil Hfa), 2 PUFF INH Q4 PRN for SOB/Wheezing Azelastine Hcl (Astelin Nasal [place]), 1-2 SPRAYS NA BID PRN for CONGESTION Furosemide (Lasix), 1 TAB PO DAILY PRN for EDEMA Ipratropium [place] (Nasal) (Ipratropium [place]), 1 SPRAY FLAKITO DAILY PRN for Nasal Congestion Physical Examination Skin: warm/dry Eyes: sclerae normal Head: atraumatic Neck: supple Respiratory/Chest: no respiratory distress Cardiovascular: regular rate, rhythm Abdomen / GI: non tender Extremities: normal inspection Neurologic/Psych: alert Diagnosis h/o breast cancer for access port Plan of Treatment for access port
--- NOTE | 2017-06-30 08:54 | Discharge Instructions ---
Discharge Instructions Date of Service Jun 30, 2017. Visit Reason for Visit: Right Breast Cancer Discharge Discharge Diagnosis / Problem: port, h/o breast cancer Discharge Goals Goal(s): Decrease discomfort, Improve function, Improve disease control Activity Recommendations Activity Limitations: as noted below Exercise/Sports Limitations: until after follow-up appointment May Resume Sexual Activity: when tolerated Shower/Bathe: tomorrow Driving or Machine Use: resume 1 day after discharge Anesthesia . Post Anesthesia Instructions: If you have had General Anesthesia or IV Sedation: * Do not drive today. * Resume driving when surgeon permits. * Do not make important decisions or sign legal documents today. * Call surgeon for: 1. Temperature elevations greater than 101 degrees F. 2. Uncontrollable pain. 3. Excessive bleeding. 4. Persistent nausea and vomiting. 5. Medication intolerance (nausea, vomiting or rash). * For nausea and vomiting use only clear liquids such as: tea, soda, bouillon until nausea subsides, then gradually increase diet as tolerated. * If you have any concerns or questions, call your surgeon's office. If physician is unavailable and it is an emergency, call 911 or go to the nearest emergency room. . Instructions / Follow-Up Instructions / Follow-Up SPECIAL CARE INSTRUCTIONS: * Cover incisions and change daily for comfort/drainage. * Expect some swelling and bruising. Call your doctor if: * Temperature above 101 degrees * Pain not relieved by pain medicine ordered * There is increased drainage or redness from any incision * You have any unanswered questions or concerns [phone]. FOLLOW UP VISIT: If not already scheduled, please call the office for a follow-up visit. for 2 weeks- suture removal OFFICE PHONE NUMBER: Dr. Disla Office Diet Recommendations Recommended Home Diet: resume previous diet Pending Studies Studies pending at discharge: no Medical Emergencies . Who to Call and When: Medical Emergencies: If at any time you feel your situation is an emergency, please call 911 immediately. . Non-Emergent Contact Non-Emergency issues call your: Primary Care Provider, Surgeon . . "Provider Documentation" section prepared by Jose Disla. .
--- NOTE | 2017-06-30 09:54 | [facility] Operative Report ---
Operative Report Operative Date Jun 30, 2017. Pre-Operative Diagnosis Need for chemotherapy, port breast cancer Post-Operative Diagnosis Same Procedure(s) Performed Insertion of A-Port right cephalic vein Surgeon Dr Disla Drum Reel Cutter Surgeon(s) none Estimated Blood Loss 5ml Findings placed via Rt cephalic vein Specimens none Drains None Anesthesia Type MAC Complication(s) none Disposition Recovery Room / PACU I attest to the content of the Intraoperative Record and any orders documented therein. Any exceptions are noted below.
--- NOTE | 2017-06-30 09:55 | [facility] Operative Report ---
Operative Report Operative Date Jun 30, 2017. Pre-Operative Diagnosis Need for chemotherapy, port breast cancer Post-Operative Diagnosis Same Procedure(s) Performed Insertion of A-Port right cephalic vein Surgeon Dr Disla Impact Retail Service Merchandiser Surgeon(s) none Estimated Blood Loss 5ml Specimens none Drains None Anesthesia Type MAC Complication(s) none Disposition Recovery Room / PACU I attest to the content of the Intraoperative Record and any orders documented therein. Any exceptions are noted below.
--- NOTE | 2017-06-30 10:45 | Anesthesiology Progress Note ---
Anesthesia Post Op Note Date & Time Jun 30, 2017 at 10:44 Vital Signs Pain Intensity: 2 Vital Signs Past 12 Hours Date Time Temp Pulse Resp B/P (MAP) Pulse Ox O2 Delivery O2 Flow Rate FiO2 06/30/17 10:36 66 13 131/92 100 06/30/17 10:36 65 13 06/30/17 10:35 66 13 100 06/30/17 10:35 66 13 06/30/17 10:31 128/72 06/30/17 10:30 66 19 99 06/30/17 10:30 67 19 06/30/17 10:29 36.2 67 16 128/72 (89) 100 Nasal Cannula 06/30/17 10:26 150/70 06/30/17 10:25 65 20 99 06/30/17 10:25 65 20 06/30/17 10:24 65 16 99 06/30/17 10:24 65 16 06/30/17 10:23 69 14 99 06/30/17 10:23 68 14 06/30/17 10:23 69 14 99 06/30/17 10:23 68 14 06/30/17 10:22 126/71 06/30/17 10:22 126/71 06/30/17 10:18 65 19 06/30/17 10:18 65 19 06/30/17 10:18 64 19 97 06/30/17 10:18 64 19 97 06/30/17 10:16 107/70 06/30/17 10:16 107/70 06/30/17 10:13 67 13 98 06/30/17 10:13 67 13 98 06/30/17 10:13 68 13 06/30/17 10:13 68 13 06/30/17 10:11 129/68 06/30/17 10:11 129/68 06/30/17 10:08 62 19 06/30/17 10:08 62 19 06/30/17 10:08 63 19 98 06/30/17 10:08 63 19 98 06/30/17 10:06 132/65 06/30/17 10:06 132/65 06/30/17 10:03 75 21 91 06/30/17 10:03 74 21 06/30/17 10:03 75 21 91 06/30/17 10:03 74 21 2/26/18 10:01 146/75 2/26/18 10:01 146/75 06/30/17 09:59 127/76 06/30/17 09:59 127/76 06/30/17 09:58 36.4 16 127/76 99 Oxymask 10 06/30/17 07:29 36.7 71 18 139/68 (91) 96 Room Air Notes Mental Status: alert / awake / arousable, participated in evaluation Pt Amnestic to Procedure: Yes Nausea / Vomiting: adequately controlled Pain: adequately controlled Airway Patency, RR, SpO2: stable & adequate BP & HR: stable & adequate Hydration State: stable & adequate Anesthetic Complications: no major complications apparent
--- NOTE | 2017-06-30 11:01 | OPERATIVE REPORT ---
DATE OF OPERATION: 06/30/2017 NAME OF OPERATION: Access port placement. PREOPERATIVE DIAGNOSIS: History of breast cancer. POSTOPERATIVE DIAGNOSIS: Same. STAFF SURGEON: Dr. Disla. ANESTHESIA: A 1% plain lidocaine with sedation. PROCEDURE: The patient was brought in the operating room and placed on the operating table in supine position. Her right upper chest was prepped and draped in usual fashion. She had a history of previous DVT in the left internal jugular and subclavian veins. Using 1% plain lidocaine, skin and subcutaneous tissue over the right deltopectoral groove were anesthetized. Incision made carrying dissection down identifying the cephalic vein. The vein was ligated distally using 2-0 silk suture and then opened. Under fluoroscopy, catheter was passed into the superior vena cava from the right side was secured using 2-0 silk suture. It was aspirated and flushed with heparinized solution. A pocket was fashioned in the subcutaneous tissue. The port attached to the catheter, placed into the pocket and secured to surrounding tissue using 3-0 Prolene suture. The site was irrigated with antibiotic solution. The port was actually flushed with heparinized solution first, the deep tissue was then reapproximated using 2-0 chromic suture then the skin reapproximated using 4-0 nylon suture. Dressing applied. The patient was transferred to recovery room in stable condition. I attest to the content of the Intraoperative Record and any orders documented therein. Any exception s are noted below.
[2017-06-30 11:15] VITALS: BP 166/76; PULSE 66; TEMP 36.7; O2SAT 95
--- NOTE | 2017-06-30 11:20 | DIAGNOSTIC IMAGING REPORT ---
CHEST ONE VIEW PORTABLE CLINICAL HISTORY: Port placement. COMPARISON STUDY: Chest radiograph March 29, 2016. FINDINGS: No pneumothorax is identified following placement of a right subclavian [id number]. Catheter tip projects over the distal SVC. No airspace opacities are identified. Pulmonary vascularity is normal. Cardiomediastinal silhouette is unremarkable. Catheter appears intact. IMPRESSION: No pneumothorax following placement of a right subclavian [id number]. Electronically signed by: Chip Joaquin M.D. 06/30/2017 11:19 AM Dictated Date/Time: 06/30/2017 11:18 AM
[2017-06-30 11:45] VITALS: BP 166/81; PULSE 72; O2SAT 96
[2017-06-30 12:12] VITALS: BP 142/62; PULSE 75; TEMP 36.8; O2SAT 98
== END | disposition home or self-care (01) ==
LOC: C.ACU 07:00
PROVIDERS: ATTEND Surgery
DX: C50.919 Malignant neoplasm of unspecified site of unspecified female breast (principal); J44.9 Chronic obstructive pulmonary disease, unspecified; Z86.718 Personal history of other venous thrombosis and embolism; K21.9 Gastro-esophageal reflux disease without esophagitis; Z85.3 Personal history of malignant neoplasm of breast; E78.5 Hyperlipidemia, unspecified; E05.90 Thyrotoxicosis, unspecified without thyrotoxic crisis or storm; Z91.030 Bee allergy status

== ENCOUNTER → 2017-07-01 | Outpatient (CLI) | payer BC ==
[~2017-07-01] MED LIST changes: -ATROPINE SULFATE 0.1 MG/ML 5ML SYR IV PRN; -CEFAZOLIN IV 2,000 MG in DEXTROSE 5% 50ML 50 ML IV SCH; -CEFAZOLIN SOD 1 GM VIAL ONE; -CEFAZOLIN SOD 2000MG/15 ML IV PUSH IV ONE; -EpHEDrine SULFATE INJ 50 MG/ML AMP IV PRN; -FENTANYL CITRATE INJ 50 MCG/1 ML 2 ML VIAL ONE; -HEPARIN SOD (PORCINE) 1000 UNIT/ML 10 ML VIAL ONE; -HYDROCODONE/ACETAMIN 5/325MG TAB PO PRN; -LACTATED RINGER'S 1000ML 1,000 ML IV SCH; -LIDOCAINE HCL 1% 20 ML VIAL ONE; -LIDOCAINE HCL 2% 2 ML VIAL (20MG/ML) ONE; -MIDAZOLAM HCL 1 MG/ML 2ML VIAL ONE; -PROPOFOL IV EMULSION 10 MG/ML 20 ML VIAL IV ONE; -THROMBIN FOR SOLN 20000 UNIT KIT ONE
[2017-07-01 13:21] LABS: BASO % 0.4 %; BASO ABS # 0.04 K/uL (0-0.2); EOS % 4.6 %; EOS ABS # 0.44 K/uL (0-0.5); HEMOGLOBIN 14.2 g/dL (12.0-16.0); IG# 0.02 K/uL (0.00-0.02); LYMPH % 28.3 %; LYMPH ABS # 2.68 K/uL (1.2-3.4); MEAN CELL VOLUME 92.5 fL (80-100); MEAN CORPUSCULAR HEMOGLOBIN 31.3 pg (25-34); MEAN CORPUSCULAR HGB CONC 33.8 g/dl (32-36); MEAN PLATELET VOLUME 10.4 fL (7.4-10.4); MONO % 11.2 %; MONO ABS # 1.06 K/uL (0.11-0.59); NEUT % 55.3 %; NEUT ABS # 5.23 K/uL (1.4-6.5); PLATELET COUNT 244 K/uL (130-400); RED CELL DISTRIBUTION WIDTH CV 13.3 % (11.5-14.5); RED CELL DISTRIBUTION WIDTH SD 44.9 fL (36.4-46.3); WHITE BLOOD COUNT 9.47 K/uL (4.8-10.8)
[2017-07-01 13:45] LABS: ALBUMIN 3.4 gm/dl (3.4-5.0); ALT/SGPT 22 U/L (12-78); AST/SGOT 19 U/L (15-37); BLOOD UREA NITROGEN 14 mg/dl (7-18); CALCIUM 8.7 mg/dl (8.5-10.1); CARBON DIOXIDE 27 mmol/L (21-32); CHOLESTEROL 210 mg/dl (0-200); CREATININE 0.79 mg/dl (0.60-1.20); GLUCOSE 115 mg/dl (70-99); POTASSIUM 3.7 mmol/L (3.5-5.1); SODIUM 139 mmol/L (136-145)
[2017-07-01 13:57] LABS: ALKALINE PHOSPHATASE 75 U/L (45-117); LDL CHOLESTEROL CALCULATED 95 mg/dl
== END | disposition home or self-care (01) ==
LOC: C.LABBC 10:34
PROVIDERS: ATTEND Internal Medicine Geriatric Medicine
DX: I10 Essential (primary) hypertension (principal); E03.9 Hypothyroidism, unspecified; E78.5 Hyperlipidemia, unspecified; R73.9 Hyperglycemia, unspecified; Z79.01 Long term (current) use of anticoagulants; Z51.81 Encounter for therapeutic drug level monitoring

== ENCOUNTER → 2017-07-02 | Outpatient (CLI) | payer BC ==
[~2017-07-02] MED LIST changes: +PERFLUTREN LIPID MICROSPHERE (DEFINITY) IV ONE
--- NOTE | 2017-07-02 16:01 | ECHOCARDIOGRAM REPORT ---
*NOTICE TO RECEIVING CONSTITUTION PARTY AGENCY This information is strictly Confidential and protected under [place] law. [place] law prohibits you from making any further disclosure of this information unless further disclosure is expressly permitted by the written consent of the person to whom it pertains or is authorized by law. A general authorization for the release of medical or other information is not sufficient for this purpose. Hospital accepts no responsibility if the information is made available to any other person, INCLUDING THE PATIENT. Interpretation Summary * Name: JASPER BARBA Study Date: 07/02/2017 12:59 PM BP: 170/51 mmHg * Patient Location: [facility] HR: 83 * : 1950 (M/d/yyyy) Gender: Female Height: 58 in * Age: 67 yrs Ethnicity: [place] Weight: 186 lb * Ordering Physician: Viral Chambers * Referring Physician: Viral Chambers D.O. * Performed By: Rachel Gonzáles RDCS * * Reason For Study: Breast cancer * BSA: 1.8 m2 * -- Conclusions -- * There is borderline asymmetric left ventricular hypertrophy. * The left ventricle is hyperdynamic. * Grade I diastolic dysfunction, (abnormal relaxation pattern). * Right ventricular systolic pressure is normal. Procedure Details * A complete two-dimensional transthoracic echocardiogram was performed (2D, M-mode, Doppler and color flow Doppler). * A contrast injection of Definity was performed to improve assessment of LV function. * Contrast was injected into an intravenous site in the right arm. * One vial of Definity ultrasound contrast was diluted in normal saline to a total volume of 10 ml. A total of '3' ml of solution was administered during imaging. * Lot # [id number] of Definity utilized for procedure. * Expiration date 1 JUN 23. * The attending nurse who injected the contrast agent was Yuliana Koenig RN. Left Ventricle * The left ventricle is normal in size. * There is borderline asymmetric left ventricular hypertrophy. * The basal septum is thickened and angulated consistent with sigmoid septum. * Ejection Fraction = >70 %. * The left ventricle is hyperdynamic. * Grade I diastolic dysfunction, (abnormal relaxation pattern). * The left ventricular wall motion is normal. Right Ventricle * The right ventricle is normal in size and function. * The right ventricular systolic function is normal as assessed by tricuspid annular plane systolic excursion (TAPSE) (normal >1.5 cm). Atria * The left atrial size is normal. * Right atrial size is normal. Mitral Valve * The mitral valve anatomy is normal. * Significant mitral regurgitation is absent. Tricuspid Valve * The tricuspid valve anatomy is normal. * There is trace tricuspid regurgitation. * Right ventricular systolic pressure is normal. Aortic Valve * The aortic valve is normal in structure and function. * The aortic valve is trileaflet. * No hemodynamically significant valvular aortic stenosis. * There is no significant aortic regurgitation. Great Vessels * The aortic root is normal size. Pericardium/Pleural * There is no pericardial effusion. MMode 2D Measurements and Calculations IVSd 0.88 cm LVIDd 3.0 cm LVIDs 1.8 cm LVPWd 1.2 cm IVS/LVPW 0.76 FS 38.1 % EDV(Teich) 33.8 ml ESV(Teich) 10.1 ml EF(Teich) 70.0 % EDV(cubed) 25.9 ml ESV(cubed) 6.1 ml EF(cubed) 76.3 % LV mass(C)d 83.0 grams LV mass(C)dI 47.0 grams/m\S\2 SV(Teich) 23.6 ml SI(Teich) 13.4 ml/m\S\2 SV(cubed) 19.7 ml SI(cubed) 11.2 ml/m\S\2 Ao root diam 3.0 cm Ao root area 7.3 cm\S\2 ACS 1.7 cm LA dimension 2.7 cm asc Aorta Diam 2.9 cm LA/Ao 0.88 LVOT diam 1.8 cm LVOT area 2.5 cm\S\2 LVAd ap4 23.6 cm\S\2 LVLd ap4 7.7 cm EDV(MOD-sp4) 58.5 ml EDV(sp4-el) 61.6 ml LVAs ap4 8.9 cm\S\2 LVLs ap4 5.8 cm ESV(MOD-sp4) 11.7 ml ESV(sp4-el) 11.5 ml EF(MOD-sp4) 80.0 % EF(sp4-el) 81.2 % LVAd ap2 22.4 cm\S\2 LVLd ap2 7.3 cm EDV(MOD-sp2) 56.1 ml EDV(sp2-el) 58.5 ml LVAs ap2 8.9 cm\S\2 LVLs ap2 6.0 cm ESV(MOD-sp2) 11.0 ml ESV(sp2-el) 11.2 ml EF(MOD-sp2) 80.3 % EF(sp2-el) 80.9 % LVLd %diff -5.74 % EDV(MOD-bp) 57.9 ml LVLs %diff 3.1 % ESV(MOD-bp) 11.5 ml EF(MOD-bp) 80.2 % SV(MOD-sp4) 46.8 ml SI(MOD-sp4) 26.5 ml/m\S\2 SV(MOD-sp2) 45.1 ml SI(MOD-sp2) 25.5 ml/m\S\2 SV(MOD-bp) 46.4 ml SI(MOD-bp) 26.3 ml/m\S\2 SV(sp4-el) 50.0 ml SI(sp4-el) 28.3 ml/m\S\2 SV(sp2-el) 47.3 ml SI(sp2-el) 26.8 ml/m\S\2 Doppler Measurements and Calculations MV E max carri 93.6 cm/sec MV A max carri 113.0 cm/sec MV E/A 0.83 MV dec time 0.29 sec Ao V2 max 150.8 cm/sec Ao max PG 9.1 mmHg Ao max PG (full) 1.1 mmHg SUMA(V,A) 2.3 cm\S\2 SUMA(V,D) 2.3 cm\S\2 LV V1 max PG 8.0 mmHg LV V1 max 141.2 cm/sec PA V2 max 104.5 cm/sec PA max PG 4.4 mmHg PA acc slope 641.6 cm/sec\S\2 PA acc time 0.12 sec TR max carri 149.3 cm/sec PA pr(Accel) 23.5 mmHg
== END | disposition home or self-care (01) ==
LOC: C.CPL 12:35
PROVIDERS: ATTEND Internal Medicine Hematology & Oncology
DX: C50.411 Malignant neoplasm of upper-outer quadrant of right female breast (principal)

== ENCOUNTER → 2017-09-04 | Outpatient (CLI) | payer BC ==
[~2017-09-04] MED LIST changes: -PERFLUTREN LIPID MICROSPHERE (DEFINITY) IV ONE
--- NOTE | 2017-09-04 13:39 | DIAGNOSTIC IMAGING REPORT ---
ULTRASOUND BILATERAL LOWER EXTREMITY VENOUS CLINICAL HISTORY: Lower extremity edema. COMPARISON STUDY: Left lower extremity venous ultrasound dated 06/19/2015. TECHNIQUE: Real-time, grayscale, and color Doppler sonography of the deep veins of the right and left lower extremity was performed from the inguinal crease to the calf. Compression and augmentation were utilized. FINDINGS: There is no sonographic evidence of acute deep venous thrombosis identified in the right or left lower extremity. Minimal stranding is again seen in the left popliteal vein. The common femoral, superficial femoral, and popliteal veins are otherwise patent and normally compressible bilaterally. The greater saphenous vein and the profunda femoris vein at the junction with the common femoral vein are clear in both legs. The visualized calf veins are patent bilaterally. IMPRESSION: 1. There is no sonographic evidence of acute deep venous thrombosis identified in the right or left lower extremity. 2. Minimal stranding is again seen in the left popliteal vein, likely representing trace chronic thrombus. This was also seen on the 2016 examination. Electronically signed by: Anthony Perez M.D. 09/04/2017 1:38 PM Dictated Date/Time: 09/04/2017 1:36 PM
== END | disposition home or self-care (01) ==
LOC: C.ULTRBC 12:29
PROVIDERS: ATTEND Physician Assistant Medical
DX: C50.919 Malignant neoplasm of unspecified site of unspecified female breast (principal); R60.0 Localized edema; Z86.718 Personal history of other venous thrombosis and embolism; Z79.01 Long term (current) use of anticoagulants

== ENCOUNTER → 2017-09-23 | Outpatient (CLI) | payer BC ==
--- NOTE | 2017-09-23 17:05 | ECHOCARDIOGRAM REPORT ---
*NOTICE TO RECEIVING [employer]PUBL[employer] AGENCY This information is strictly Confidential and protected under [place] law. [place] law prohibits you from making any further disclosure of this information unless further disclosure is expressly permitted by the written consent of the person to whom it pertains or is authorized by law. A general authorization for the release of medical or other information is not sufficient for this purpose. Hospital accepts no responsibility if the information is made available to any other person, INCLUDING THE PATIENT. Interpretation Summary * Name: JASPER BARBA Study Date: 09/23/2017 01:12 PM BP: 170/51 mmHg * Patient Location: [facility] HR: 80 * : 1950 (M/d/yyyy) Gender: Female Height: 58 in * Age: 67 yrs Ethnicity: [place] Weight: 178 lb * Ordering Physician: Viral Chambers * Referring Physician: Viral Chambers D.O. * Performed By: Dione Alvares RCS * * Reason For Study: BREAST CANCER * BSA: 1.7 m2 * -- Conclusions -- * There is borderline asymmetric left ventricular hypertrophy. * Left ventricular systolic function is normal. * Diastolic dysfunction, Grade II (pseudonormalization pattern). * There is mild mitral annular calcification. * Right ventricular systolic pressure is normal. * Compared to study from June 2017, there is little change. Procedure Details * A complete two-dimensional transthoracic echocardiogram was performed (2D, M-mode, Doppler and color flow Doppler). Left Ventricle * The left ventricle is normal in size. * There is borderline asymmetric left ventricular hypertrophy. * Left ventricular systolic function is normal. * Ejection Fraction = 50-55%. * Diastolic dysfunction, Grade II (pseudonormalization pattern). * The left ventricular wall motion is normal. Right Ventricle * The right ventricle is normal in size and function. Atria * The left atrial size is normal. * Right atrial size is normal. Mitral Valve * There is mild mitral annular calcification. * Significant mitral regurgitation is absent. Tricuspid Valve * The tricuspid valve is not well visualized, but is grossly normal. * Right ventricular systolic pressure is normal. Aortic Valve * The aortic valve is normal in structure and function. * The aortic valve is trileaflet. * No hemodynamically significant valvular aortic stenosis. * There is no significant aortic regurgitation. Pulmonic Valve * The pulmonic valve is not well visualized. Great Vessels * The aortic root is normal size. Pericardium/Pleural * There is no pericardial effusion. Great Vessels * Normal inferior vena cava diameter and respiratory variation suggests normal central venous pressure. MMode 2D Measurements and Calculations IVSd 1.4 cm IVSs 1.9 cm LVIDd 4.1 cm LVIDs 2.6 cm LVPWd 1.0 cm LVPWs 0.96 cm IVS/LVPW 1.4 FS 36.2 % EDV(Teich) 73.8 ml ESV(Teich) 24.8 ml EF(Teich) 66.4 % EDV(cubed) 68.4 ml ESV(cubed) 17.8 ml EF(cubed) 74.1 % % IVS thick 29.4 % % LVPW thick -4.61 % LV mass(C)d 176.2 grams LV mass(C)dI 101.7 grams/m\S\2 LV mass(C)s 119.4 grams LV mass(C)sI 68.9 grams/m\S\2 SV(Teich) 49.0 ml SI(Teich) 28.3 ml/m\S\2 SV(cubed) 50.7 ml SI(cubed) 29.2 ml/m\S\2 Ao root diam 3.3 cm Ao root area 8.4 cm\S\2 ACS 2.0 cm LA dimension 2.5 cm LA/Ao 0.77 LVOT diam 2.0 cm LVOT area 3.2 cm\S\2 LVAd ap4 26.9 cm\S\2 LVLd ap4 7.5 cm EDV(MOD-sp4) 77.4 ml EDV(sp4-el) 82.4 ml LVAs ap4 16.7 cm\S\2 LVLs ap4 6.5 cm ESV(MOD-sp4) 34.6 ml ESV(sp4-el) 36.2 ml EF(MOD-sp4) 55.4 % EF(sp4-el) 56.0 % LVAd ap2 28.5 cm\S\2 LVLd ap2 7.9 cm EDV(MOD-sp2) 83.1 ml EDV(sp2-el) 86.8 ml LVAs ap2 17.4 cm\S\2 LVLs ap2 6.8 cm ESV(MOD-sp2) 37.3 ml ESV(sp2-el) 38.0 ml EF(MOD-sp2) 55.2 % EF(sp2-el) 56.2 % LVLd %diff 5.7 % EDV(MOD-bp) 82.4 ml LVLs %diff 3.8 % ESV(MOD-bp) 36.1 ml EF(MOD-bp) 56.2 % SV(MOD-sp4) 42.9 ml SI(MOD-sp4) 24.7 ml/m\S\2 SV(MOD-sp2) 45.8 ml SI(MOD-sp2) 26.4 ml/m\S\2 SV(MOD-bp) 46.3 ml SI(MOD-bp) 26.7 ml/m\S\2 SV(sp4-el) 46.1 ml SI(sp4-el) 26.6 ml/m\S\2 SV(sp2-el) 48.8 ml SI(sp2-el) 28.2 ml/m\S\2 Doppler Measurements and Calculations MV E max carri 107.2 cm/sec MV A max carri 96.0 cm/sec MV E/A 1.1 MV P1/2t max carri 123.5 cm/sec MV P1/2t 78.4 msec MVA(P1/2t) 2.8 cm\S\2 MV dec slope 461.6 cm/sec\S\2 MV dec time 0.23 sec Ao V2 max 156.1 cm/sec Ao max PG 9.7 mmHg Ao max PG (full) 4.5 mmHg SUMA(V,A) 2.4 cm\S\2 SUMA(V,D) 2.4 cm\S\2 LV V1 max PG 5.3 mmHg LV V1 max 115.0 cm/sec MR max carri 610.3 cm/sec MR max PG 149.0 mmHg PA V2 max 99.1 cm/sec PA max PG 3.9 mmHg TR max carri 242.3 cm/sec
== END | disposition home or self-care (01) ==
LOC: C.CPL 12:46
PROVIDERS: ATTEND Internal Medicine Hematology & Oncology
DX: C50.411 Malignant neoplasm of upper-outer quadrant of right female breast (principal)

== ENCOUNTER → 2017-11-26 | Outpatient (CLI) | payer BC ==
[~2017-11-26] MED LIST changes: -CYAN100020 PO; +FLUT0.15 NAE; +OPTIRAY 320 IV PRN; -POTA99TA PO; -WARF4TAB PO; +potassium 99 PO
--- NOTE | 2017-11-26 12:41 | DIAGNOSTIC IMAGING REPORT ---
CT ABD/PELVIS IV AND ORAL CONT CLINICAL HISTORY: Breast carcinoma. Abdominal pain. COMPARISON STUDY: March 2016 TECHNIQUE: Following the IV administration of 110 mL of Optiray-320, CT scan of the abdomen and pelvis was performed from the lung bases to the proximal femurs. Images are reviewed in the axial, sagittal, and coronal planes. IV contrast was administered without complication. A dose lowering technique was utilized adhering to the principles of ALARA. CT DOSE: 1047.80 mGycm FINDINGS: Lower chest: There is a 1 cm right lower lobe lung cyst. Liver: The contrast-enhanced liver is normal in size, contour, and attenuation. There is no intrahepatic biliary ductal dilatation. The hepatic veins and portal veins are patent. Gallbladder: There is an equivocal tiny gallstones/gallbladder polyp. Spleen: Normal in size and attenuation. Pancreas: Unremarkable. Adrenal glands: Unremarkable. Kidneys: There is symmetric renal cortical enhancement. The kidneys are normal in size without hydronephrosis. Bowel: There are no transition zones indicate bowel obstruction. There is a lower abdominal ventral hernia. There are no findings to indicate acute diverticulitis. There are no findings to indicate acute appendicitis. Peritoneum: There is no intraperitoneal free air or abdominal ascites. Vasculature: The abdominal aorta is normal in course and caliber. Adenopathy: Iliac lymph nodes remain at the upper limits of normal in size. Pelvic viscera: The bladder, and pelvic viscera are unremarkable. Skeletal structures: No destructive osseous lesions are seen. IMPRESSION: 1. Stable bowel containing ventral hernia 2. No evidence of bowel obstruction. No evidence of free air 3. No acute inflammatory changes. Electronically signed by: Stephen Cannon M.D. 11/26/2017 12:40 PM Dictated Date/Time: 11/26/2017 12:35 PM
== END | disposition home or self-care (01) ==
LOC: C.CTS 12:05
PROVIDERS: ATTEND Internal Medicine Hematology & Oncology
DX: C50.411 Malignant neoplasm of upper-outer quadrant of right female breast (principal); R10.9 Unspecified abdominal pain

== ENCOUNTER → 2017-12-03 | Outpatient (CLI) | payer BC ==
[~2017-12-03] MED LIST changes: -OPTIRAY 320 IV PRN; +[UNRECOGNIZED DRUG - CODE]
[2017-12-03 11:41] LABS: BASO % 1.1 %; BASO ABS # 0.05 K/uL (0-0.2); EOS % 4.9 %; EOS ABS # 0.22 K/uL (0-0.5); HEMATOCRIT 33.4 % (37-47); IG# 0.01 K/uL (0.00-0.02); LYMPH % 34.5 %; LYMPH ABS # 1.55 K/uL (1.2-3.4); MEAN CELL VOLUME 107.7 fL (80-100); MEAN CORPUSCULAR HEMOGLOBIN 35.5 pg (25-34); MEAN CORPUSCULAR HGB CONC 32.9 g/dl (32-36); MEAN PLATELET VOLUME 9.2 fL (7.4-10.4); MONO % 13.8 %; MONO ABS # 0.62 K/uL (0.11-0.59); NEUT % 45.5 %; NEUT ABS # 2.04 K/uL (1.4-6.5); PLATELET COUNT 162 K/uL (130-400); RED CELL DISTRIBUTION WIDTH CV 13.9 % (11.5-14.5); RED CELL DISTRIBUTION WIDTH SD 54.5 fL (36.4-46.3); WHITE BLOOD COUNT 4.49 K/uL (4.8-10.8)
[2017-12-03 12:02] LABS: ALBUMIN 3.2 gm/dl (3.4-5.0); ALKALINE PHOSPHATASE 65 U/L (45-117); ALT/SGPT 21 U/L (12-78); AST/SGOT 18 U/L (15-37); BLOOD UREA NITROGEN 12 mg/dl (7-18); CALCIUM 8.7 mg/dl (8.5-10.1); CARBON DIOXIDE 25 mmol/L (21-32); CREATININE 0.63 mg/dl (0.60-1.20); GLUCOSE 116 mg/dl (70-99); POTASSIUM 3.6 mmol/L (3.5-5.1); SODIUM 140 mmol/L (136-145); TOTAL PROTEIN 6.3 gm/dl (6.4-8.2)
== END | disposition home or self-care (01) ==
LOC: C.LABSPEC 11:24
PROVIDERS: ATTEND Internal Medicine Hematology & Oncology
DX: C50.411 Malignant neoplasm of upper-outer quadrant of right female breast (principal)

== ENCOUNTER → 2017-12-24 | Outpatient (CLI) | payer BC ==
[2017-12-24 10:19] LABS: BASO % 1.1 %; BASO ABS # 0.05 K/uL (0-0.2); EOS % 4.7 %; EOS ABS # 0.22 K/uL (0-0.5); HEMATOCRIT 35.8 % (37-47); HEMOGLOBIN 11.6 g/dL (12.0-16.0); LYMPH % 34.5 %; LYMPH ABS # 1.61 K/uL (1.2-3.4); MEAN CELL VOLUME 103.2 fL (80-100); MEAN CORPUSCULAR HEMOGLOBIN 33.4 pg (25-34); MEAN CORPUSCULAR HGB CONC 32.4 g/dl (32-36); MONO % 15.2 %; MONO ABS # 0.71 K/uL (0.11-0.59); NEUT % 44.5 %; NEUT ABS # 2.08 K/uL (1.4-6.5); PLATELET COUNT 167 K/uL (130-400); RED CELL DISTRIBUTION WIDTH CV 12.8 % (11.5-14.5); RED CELL DISTRIBUTION WIDTH SD 48.4 fL (36.4-46.3); WHITE BLOOD COUNT 4.67 K/uL (4.8-10.8)
[2017-12-24 10:40] LABS: ALBUMIN 3.3 gm/dl (3.4-5.0); ALKALINE PHOSPHATASE 65 U/L (45-117); ALT/SGPT 27 U/L (12-78); AST/SGOT 23 U/L (15-37); BLOOD UREA NITROGEN 11 mg/dl (7-18); CALCIUM 8.8 mg/dl (8.5-10.1); CARBON DIOXIDE 25 mmol/L (21-32); CREATININE 0.66 mg/dl (0.60-1.20); GLUCOSE 92 mg/dl (70-99); SODIUM 140 mmol/L (136-145); TOTAL PROTEIN 6.6 gm/dl (6.4-8.2)
== END | disposition home or self-care (01) ==
LOC: C.LABSPEC 10:11
PROVIDERS: ATTEND Internal Medicine Hematology & Oncology
DX: C50.411 Malignant neoplasm of upper-outer quadrant of right female breast (principal)